=== PATIENT | female | born 1960 | race Caucasian/White ===

== ENCOUNTER → 2024-05-24 06:21 | Day surgery (SDC) | payer OTHER, SELFPAY | LOC: GI 06:21 | PROVIDERS: ATTENDING PHYSICIAN Internal Medicine Gastroenterology | DX: D12.8 Benign neoplasm of rectum (principal); R19.4 Change in bowel habit | CPT/HCPCS: 45380; 88305 ==

== ENCOUNTER 2024-05-31 06:19 | Day surgery (SDC) | payer OTHER, SELFPAY | END 2024-05-31 09:31 | disposition home or self-care (01) | LOC: GI 06:19 | PROVIDERS: ATTENDING PHYSICIAN Internal Medicine Gastroenterology | DX: D12.8 Benign neoplasm of rectum (principal); K62.5 Hemorrhage of anus and rectum; K62.89 Other specified diseases of anus and rectum; D49.0 Neoplasm of unspecified behavior of digestive system | CPT/HCPCS: 45331; 88305 ==

== ENCOUNTER → 2024-06-27 07:26 | Outpatient (REF) | payer OTHER, SELFPAY | LOC: MRI 3T 07:26 | PROVIDERS: ATTENDING PHYSICIAN Surgery; FAMILY PHYSICIAN Family Medicine | DX: K62.1 Rectal polyp (principal) | CPT/HCPCS: 72197; A9575 ==

== ENCOUNTER 2024-07-11 06:19 | Day surgery (SDC) | payer OTHER, SELFPAY ==
[2024-07-05 08:58] LABS: APTT 28.3 Sec (23.4-35.0); INR 0.98; PT 13.3 Sec (11.4-14.6)
[2024-07-05 09:25] LABS: ALT (SGPT) 47 U/L (0-35); AST (SGOT) 37 U/L (14-36); Albumin 4.2 g/dl (3.5-5.0); Alkaline Phosphatase 66 U/L (38-126); Blood Urea Nitrogen 12 mg/dl (7-17); Calcium 9.7 mg/dl (8.4-10.2); Carbon Dioxide 30 mmol/L (22-30); Chloride 108 mmol/L (98-107); Glucose 97 mg/dl (70-99); Potassium 4.5 mmol/L (3.5-5.1); Sodium 146 mmol/L (135-145); Total Bilirubin 0.7 mg/dl (0.2-1.3); Total Protein 6.9 g/dl (6.3-8.2); eGFR > 60.00
[2024-07-05 10:58] LABS: CEA 1.91 ng/ml
[2024-07-05 13:56] VITALS: BMI 22.9
[2024-07-11] VITALS (12 sets, daily range): BP systolic 113–134; BP diastolic 52–82; BMI 22.9
[2024-07-11] MEDS: TYLENOL 1000 MG PO (12:20)
[2024-07-11] MEDS: NORMOSOL-R/PLASMALYTE-A 1000 IV (12:35)
[2024-07-11 12:52] LABS: Hematocrit 41.7 % (37.0-47.0); Hemoglobin 13.6 g/dL (12.0-16.0); Mean Corp Hgb Conc. 32.6 g/dL (33.0-37.0); Mean Corpuscular Hgb 29.4 pg (27.0-31.0); Mean Corpuscular Volume 90.1 fL (81.0-99.0); Platelet Count 215 10^3/uL (130-400); Red Blood Cell Count 4.63 10^6/uL (4.20-5.40); White Blood Cell Count 5.4 10^3/uL (4.8-10.8)
[2024-07-11] MEDS: LOPRESSOR 2.5 MG IV (16:28)
--- NOTE | 2024-07-11 17:00 | SUR.PHASEI ---
Dr. Crisostomo at bedside and okay to move to [facility]. HR [id number]. Ambulated to [facility]. Denied feeling lightheaded or dizzy
== END 2024-07-11 17:45 | disposition home or self-care (01) ==
LOC: SDS 06:19
PROVIDERS: Student in an Organized Health Care Education/Training Program; ATTENDING PHYSICIAN Surgery; FAMILY PHYSICIAN Family Medicine
DX: D49.0 Neoplasm of unspecified behavior of digestive system (principal); D12.8 Benign neoplasm of rectum
CPT/HCPCS: 45172; 88307; 36415; 80053; 82378; 85027; 85610; 85730; 93005; J1335